=== PATIENT | female | born 1950 | race Caucasian/White ===

== ENCOUNTER 2018-04-16 16:18 | Inpatient (IN) ==
[2018-04-16] MEDS ORDERED: LOPERAMIDE 2 MG CAPSULE PO STA (16:34)
[2018-04-16] MEDS ORDERED: ONDANSETRON 4 MG/2 ML VIAL IV STA (16:34)
[2018-04-16] MEDS ORDERED: SODIUM CHLORIDE 0.9% 1,000 ML IV STA (16:34)
[2018-04-16] MEDS ORDERED: SODIUM CHLORIDE 0.9% 500 ML IV STA (16:40)
[2018-04-16 17:34] LABS: Basophils % 0.3 % (0.0-0.8); Eosinophils % 0.4 % (0.00-10.9); Hematocrit 34.8 VOL% (35.7-47.0); Hemoglobin 11.1 GM/DL (12.0-16.0); Immature Granulocytes % 2.1 %; Immature Granulocytes Absolute 0.16 #; Lymphocytes # 1.1 10*3/uL (1.4-4.0); Lymphocytes % 14.9 % (21.3-54.2); Mean Corpuscular HGB Conc 31.9 GM/DL (32-36); Mean Corpuscular Hemoglobin 35 PG (27-34); Mean Corpuscular Volume 109.1 FL (87-102); Mean Platelet Volume 11.5 FL (9.6-12.0); Monocytes # 0.6 10*3/uL (0.11-0.8); Monocytes % 7.7 % (1.7-12.7); NRBC # 0.07 10*3/uL; Neutrophils # 5.7 10*3/uL (1.4-7.4); Neutrophils % 74.6 % (38.7-73.9); Platelet Count 116 T/CUMM (130-400); Red Blood Count 3.19 MC/CUMM (3.8-5.5); Red Cell Distribution Width 15.4 % (9.3-17.3); White Blood Count 7.6 T/CUMM (4-12)
[2018-04-16 17:51] LABS: Albumin 3.4 G/DL (3.4-5.0); Bilirubin,Total 1.2 MG/DL (0.2-1.0); Calcium 8.6 MG/DL (8.5-10.1); Osmolality,Calculated 272.1 MOS/KG (273-304); Potassium 3.2 MMOL/L (3.5-5.1); Total Protein 8.5 G/DL (6.4-8.3)
[2018-04-16 17:51] LABS: Partial Thromboplastin Time 25.9 SECS (0-40)
[2018-04-16 19:28] LABS: Apearance,Urine CLEAR (Clear); Bacteria,Urine Occasional /HPF (Few); Bilirubin,Urine Negative (Negative); Blood, Urine Moderate mg/dL (Negative); Glucose,Urine (UA) Negative (Negative); Hyaline Casts,Urine 14 /LPF (0-3); Ketones,Urine Negative (Negative); Mucus,Urine Occasional /LPF (Occasional); Nitrite,Urine Positive (Negative); Protein,Urine Negative; RBC,Urine 17 /HPF (0-4); Squamous Epithelial Cell,Urine Occasional /HPF (0-10); Urine Color Yellow (Yellow); Urine Specific Gravity 1.008 (1.001-1.035); Urine Urobilinogen < 2.0 EU/DL (0.2-1.0); WBC,Urine 2 /HPF (0-6)
[2018-04-16] MEDS ORDERED: ONDANSETRON 4 MG/2 ML VIAL IV PRN (20:38)
[2018-04-16] MEDS ORDERED: traMADol 50 MG TABLET PO PRN (20:41)
[2018-04-16] MEDS ORDERED: MAGNESIUM SULFATE 2 GM/50 ML PREMIX IV SCH (21:00)
[2018-04-16] MEDS: cefTRIAXone 1,000 MG in SYRINGE 1 EACH IV SCH (21:01)
[2018-04-16 21:20] LABS: Risk Ratio 2.27; VLDL CHOLESTEROL 24.2 MG/DL
[2018-04-16] MEDS: SODIUM CHLORIDE 0.9% 1,000 ML IV SCH (22:55)
[2018-04-16] MEDS: CARVEDILOL 6.25 MG TABLET PO SCH (23:17)
[2018-04-16] MEDS: POTASSIUM CHLORIDE 20 MEQ TABLET PO SCH (23:17)
[2018-04-16] MEDS: PREGABALIN 50 MG CAPSULE PO SCH (23:18)
[2018-04-16] MEDS: APIXABAN 5 MG TABLET PO SCH (23:18)
[2018-04-17 00:54] LABS: Basophils % 0.2 % (0.0-0.8); Eosinophils % 0.5 % (0.00-10.9); Hematocrit 31.5 VOL% (35.7-47.0); Hemoglobin 10.1 GM/DL (12.0-16.0); Immature Granulocytes % 1.9 %; Immature Granulocytes Absolute 0.12 #; Lymphocytes # 1.3 10*3/uL (1.4-4.0); Lymphocytes % 19.9 % (21.3-54.2); Mean Corpuscular HGB Conc 32.1 GM/DL (32-36); Mean Corpuscular Hemoglobin 35 PG (27-34); Mean Corpuscular Volume 110.1 FL (87-102); Monocytes # 0.6 10*3/uL (0.11-0.8); Monocytes % 9.6 % (1.7-12.7); NRBC # 0.05 10*3/uL; Neutrophils # 4.3 10*3/uL (1.4-7.4); Neutrophils % 67.9 % (38.7-73.9); Platelet Count 105 T/CUMM (130-400); Red Blood Count 2.86 MC/CUMM (3.8-5.5); Red Cell Distribution Width 15.3 % (9.3-17.3); White Blood Count 6.3 T/CUMM (4-12)
[2018-04-17 00:58] LABS: Calcium 8.2 MG/DL (8.5-10.1); Osmolality,Calculated 277.7 MOS/KG (273-304); Potassium 3.4 MMOL/L (3.5-5.1)
[2018-04-17 01:16] LABS: Platelet Estimate Decreased; Polychromasia Few
[2018-04-17] MEDS: SODIUM CHLORIDE 0.9% 1,000 ML IV SCH ×3 (06:25→23:49)
[2018-04-17] MEDS: LEVOTHYROXINE 50 MCG TABLET PO SCH (06:25)
[2018-04-17] MEDS: APIXABAN 5 MG TABLET PO SCH ×2 (08:38→20:40)
[2018-04-17] MEDS: VENLAFAXINE XR 75 MG CAPSULE PO SCH (08:38)
[2018-04-17] MEDS: CARVEDILOL 6.25 MG TABLET PO SCH ×2 (08:38→20:39)
[2018-04-17] MEDS: DIGOXIN 0.125 MG TABLET PO SCH (08:39)
[2018-04-17] MEDS: POTASSIUM CHLORIDE 20 MEQ TABLET PO SCH ×2 (08:39→20:40)
[2018-04-17] MEDS: PREGABALIN 50 MG CAPSULE PO SCH ×2 (08:39→20:40)
[2018-04-17] MEDS: MEGESTROL 40 MG TABLET PO SCH (08:40)
[2018-04-17] MEDS: MAGNESIUM OXIDE 400 MG TABLET PO SCH (08:40)
[2018-04-17] MEDS: CHOLECALCIFEROL 5,000 UNIT TABLET PO SCH (08:40)
[2018-04-17] MEDS: PANTOPRAZOLE 40 MG TABLET PO SCH (08:40)
[2018-04-17] MEDS ORDERED: ALLOPURINOL 300 MG TABLET PO SCH (09:00)
[2018-04-17] MEDS ORDERED: PANTOPRAZOLE 40 MG TABLET PO SCH (09:00)
[2018-04-17] MEDS: MIDODRINE 5 MG TABLET PO SCH ×2 (17:20→20:40)
[2018-04-17] MEDS: cefTRIAXone 1,000 MG in SYRINGE 1 EACH IV SCH (20:40)
[2018-04-17] MEDS ORDERED: BORTEZOMIB SUBCUT SCH (20:41)
[2018-04-18 04:48] LABS: Basophils % 0.1 % (0.0-0.8); Eosinophils # 0.1 10*3/uL (0.0-0.87); Eosinophils % 0.8 % (0.00-10.9); Hematocrit 29.5 VOL% (35.7-47.0); Immature Granulocytes % 0.8 %; Immature Granulocytes Absolute 0.06 #; Lymphocytes # 1.3 10*3/uL (1.4-4.0); Lymphocytes % 18.3 % (21.3-54.2); Mean Corpuscular HGB Conc 30.5 GM/DL (32-36); Mean Corpuscular Hemoglobin 35 PG (27-34); Mean Corpuscular Volume 114.8 FL (87-102); Monocytes # 0.6 10*3/uL (0.11-0.8); Monocytes % 8.1 % (1.7-12.7); NRBC # 0.03 10*3/uL; Neutrophils # 5.2 10*3/uL (1.4-7.4); Neutrophils % 71.9 % (38.7-73.9); Platelet Count 101 T/CUMM (130-400); Red Blood Count 2.57 MC/CUMM (3.8-5.5); Red Cell Distribution Width 16.2 % (9.3-17.3); White Blood Count 7.3 T/CUMM (4-12)
[2018-04-18 05:08] LABS: Potassium 4.3 MMOL/L (3.5-5.1)
[2018-04-18 05:40] LABS: Hypochromasia 1+; Ovalocytes Slight; Platelet Estimate Decreased
[2018-04-18] MEDS: LEVOTHYROXINE 50 MCG TABLET PO SCH (06:10)
[2018-04-18] MEDS: CARVEDILOL 6.25 MG TABLET PO SCH ×2 (08:42→21:58)
[2018-04-18] MEDS: MIDODRINE 5 MG TABLET PO SCH ×4 (08:42→21:57)
[2018-04-18] MEDS: DIGOXIN 0.125 MG TABLET PO SCH (08:42)
[2018-04-18] MEDS: CHOLECALCIFEROL 5,000 UNIT TABLET PO SCH (08:42)
[2018-04-18] MEDS: VENLAFAXINE XR 75 MG CAPSULE PO SCH (08:42)
[2018-04-18] MEDS: APIXABAN 5 MG TABLET PO SCH ×2 (08:43→21:59)
[2018-04-18] MEDS: MAGNESIUM OXIDE 400 MG TABLET PO SCH (08:43)
[2018-04-18] MEDS: POTASSIUM CHLORIDE 20 MEQ TABLET PO SCH ×2 (08:43→21:58)
[2018-04-18] MEDS: PANTOPRAZOLE 40 MG TABLET PO SCH (08:43)
[2018-04-18] MEDS: PREGABALIN 50 MG CAPSULE PO SCH ×2 (08:44→21:57)
[2018-04-18] MEDS: MEGESTROL 40 MG TABLET PO SCH (08:45)
[2018-04-18] MEDS ORDERED: LOPERAMIDE 2 MG CAPSULE PO ONE (10:58)
[2018-04-18] MEDS ORDERED: MAGNESIUM SULF RIDER 2 GM in PREMIX 1 EACH IV ONE (11:36)
[2018-04-18] MEDS: LOPERAMIDE 2 MG CAPSULE PO PRN ×2 (14:40→21:58)
[2018-04-18] MEDS: cefTRIAXone 1,000 MG in SYRINGE 1 EACH IV SCH (21:55)
[2018-04-18] MEDS: SODIUM CHLORIDE 0.9% 1,000 ML IV SCH (21:59)
[2018-04-19] MEDS: LOPERAMIDE 2 MG CAPSULE PO PRN ×3 (04:05→22:01)
[2018-04-19 05:48] LABS: Basophils % 0.2 % (0.0-0.8); Eosinophils # 0.1 10*3/uL (0.0-0.87); Eosinophils % 1.4 % (0.00-10.9); Hematocrit 30.1 VOL% (35.7-47.0); Hemoglobin 9.1 GM/DL (12.0-16.0); Immature Granulocytes % 0.7 %; Immature Granulocytes Absolute 0.04 #; Lymphocytes # 1.1 10*3/uL (1.4-4.0); Lymphocytes % 18.8 % (21.3-54.2); Mean Corpuscular HGB Conc 30.2 GM/DL (32-36); Mean Corpuscular Hemoglobin 35 PG (27-34); Mean Corpuscular Volume 116.2 FL (87-102); Monocytes # 0.5 10*3/uL (0.11-0.8); Monocytes % 7.9 % (1.7-12.7); Platelet Count 113 T/CUMM (130-400); Red Blood Count 2.59 MC/CUMM (3.8-5.5); Red Cell Distribution Width 16.5 % (9.3-17.3); White Blood Count 5.7 T/CUMM (4-12)
[2018-04-19 06:07] LABS: Calcium 8.2 MG/DL (8.5-10.1); Osmolality,Calculated 275.5 MOS/KG (273-304); Potassium 3.7 MMOL/L (3.5-5.1)
[2018-04-19] MEDS: LEVOTHYROXINE 50 MCG TABLET PO SCH (06:20)
[2018-04-19] MEDS: DIGOXIN 0.125 MG TABLET PO SCH (08:58)
[2018-04-19] MEDS: MAGNESIUM OXIDE 400 MG TABLET PO SCH (08:58)
[2018-04-19] MEDS: CHOLECALCIFEROL 5,000 UNIT TABLET PO SCH (08:58)
[2018-04-19] MEDS: CARVEDILOL 6.25 MG TABLET PO SCH ×2 (08:58→22:02)
[2018-04-19] MEDS: MIDODRINE 5 MG TABLET PO SCH ×4 (08:58→22:01)
[2018-04-19] MEDS: MEGESTROL 40 MG TABLET PO SCH (08:58)
[2018-04-19] MEDS: POTASSIUM CHLORIDE 20 MEQ TABLET PO SCH ×2 (08:58→22:01)
[2018-04-19] MEDS: VENLAFAXINE XR 75 MG CAPSULE PO SCH (08:58)
[2018-04-19] MEDS: PREGABALIN 50 MG CAPSULE PO SCH ×2 (08:59→22:01)
[2018-04-19] MEDS: PANTOPRAZOLE 40 MG TABLET PO SCH (08:59)
[2018-04-19] MEDS: APIXABAN 5 MG TABLET PO SCH ×2 (08:59→22:01)
[2018-04-19] MEDS: cefTRIAXone 1,000 MG in SYRINGE 1 EACH IV SCH (22:02)
[2018-04-20] MEDS: SODIUM CHLORIDE 0.9% 1,000 ML IV SCH ×2 (00:11→00:46)
[2018-04-20] MEDS: LEVOTHYROXINE 50 MCG TABLET PO SCH (05:42)
[2018-04-20] MEDS ORDERED: TUBERCULIN SKIN TEST 0.1 ML SYRINGE INTRADERM ONE (07:44)
[2018-04-20] MEDS: MAGNESIUM OXIDE 400 MG TABLET PO SCH (09:27)
[2018-04-20] MEDS: VENLAFAXINE XR 75 MG CAPSULE PO SCH (09:27)
[2018-04-20] MEDS: MIDODRINE 5 MG TABLET PO SCH ×3 (09:27→21:03)
[2018-04-20] MEDS: DIGOXIN 0.125 MG TABLET PO SCH (09:28)
[2018-04-20] MEDS: LOPERAMIDE 2 MG CAPSULE PO PRN (09:29)
[2018-04-20] MEDS: APIXABAN 5 MG TABLET PO SCH ×2 (09:29→21:03)
[2018-04-20] MEDS: CHOLECALCIFEROL 5,000 UNIT TABLET PO SCH (09:29)
[2018-04-20] MEDS: MEGESTROL 40 MG TABLET PO SCH (09:29)
[2018-04-20] MEDS: PANTOPRAZOLE 40 MG TABLET PO SCH (09:29)
[2018-04-20] MEDS: CARVEDILOL 6.25 MG TABLET PO SCH ×2 (09:29→21:04)
[2018-04-20] MEDS: POTASSIUM CHLORIDE 20 MEQ TABLET PO SCH ×2 (09:32→21:03)
[2018-04-20] MEDS: PREGABALIN 50 MG CAPSULE PO SCH ×2 (14:05→21:04)
[2018-04-20] MEDS: cefTRIAXone 1,000 MG in SYRINGE 1 EACH IV SCH (21:04)
[2018-04-21] MEDS: MIDODRINE 5 MG TABLET PO SCH ×5 (06:03→21:28)
[2018-04-21] MEDS: LEVOTHYROXINE 50 MCG TABLET PO SCH (06:04)
[2018-04-21] MEDS: SODIUM CHLORIDE 0.9% 1,000 ML IV SCH ×2 (06:04→09:13)
[2018-04-21] MEDS: MEGESTROL 40 MG TABLET PO SCH (09:15)
[2018-04-21] MEDS: CHOLECALCIFEROL 5,000 UNIT TABLET PO SCH (09:15)
[2018-04-21] MEDS: PREGABALIN 50 MG CAPSULE PO SCH ×2 (09:15→21:28)
[2018-04-21] MEDS: APIXABAN 5 MG TABLET PO SCH ×2 (09:15→21:27)
[2018-04-21] MEDS: VENLAFAXINE XR 75 MG CAPSULE PO SCH (09:15)
[2018-04-21] MEDS: CARVEDILOL 6.25 MG TABLET PO SCH ×2 (09:16→21:30)
[2018-04-21] MEDS: POTASSIUM CHLORIDE 20 MEQ TABLET PO SCH ×2 (09:16→21:28)
[2018-04-21] MEDS: PANTOPRAZOLE 40 MG TABLET PO SCH (09:16)
[2018-04-21] MEDS: DIGOXIN 0.125 MG TABLET PO SCH (09:17)
[2018-04-21] MEDS: MAGNESIUM OXIDE 400 MG TABLET PO SCH (09:22)
[2018-04-21] MEDS: cefTRIAXone 1,000 MG in SYRINGE 1 EACH IV SCH (21:32)
[2018-04-22 05:03] LABS: Basophils % 0.2 % (0.0-0.8); Eosinophils # 0.1 10*3/uL (0.0-0.87); Eosinophils % 1.1 % (0.00-10.9); Hemoglobin 8.1 GM/DL (12.0-16.0); Immature Granulocytes % 0.5 %; Immature Granulocytes Absolute 0.03 #; Lymphocytes % 18.1 % (21.3-54.2); Mean Corpuscular HGB Conc 31.2 GM/DL (32-36); Mean Corpuscular Hemoglobin 35 PG (27-34); Mean Corpuscular Volume 112.6 FL (87-102); Mean Platelet Volume 11.7 FL (9.6-12.0); Monocytes # 0.4 10*3/uL (0.11-0.8); Monocytes % 7.7 % (1.7-12.7); Neutrophils # 4.1 10*3/uL (1.4-7.4); Neutrophils % 72.4 % (38.7-73.9); Platelet Count 116 T/CUMM (130-400); Red Blood Count 2.31 MC/CUMM (3.8-5.5); Red Cell Distribution Width 15.9 % (9.3-17.3); White Blood Count 5.7 T/CUMM (4-12)
[2018-04-22 05:20] LABS: Calcium 8.2 MG/DL (8.5-10.1); Osmolality,Calculated 277.4 MOS/KG (273-304); Potassium 4.5 MMOL/L (3.5-5.1)
[2018-04-22] MEDS: LEVOTHYROXINE 50 MCG TABLET PO SCH (05:51)
[2018-04-22] MEDS: CARVEDILOL 6.25 MG TABLET PO SCH ×2 (08:07→21:00)
[2018-04-22] MEDS: MEGESTROL 40 MG TABLET PO SCH (08:07)
[2018-04-22] MEDS: APIXABAN 5 MG TABLET PO SCH ×2 (08:08→21:00)
[2018-04-22] MEDS: MAGNESIUM OXIDE 400 MG TABLET PO SCH (08:09)
[2018-04-22] MEDS: MIDODRINE 5 MG TABLET PO SCH ×4 (08:09→21:00)
[2018-04-22] MEDS: VENLAFAXINE XR 75 MG CAPSULE PO SCH (08:10)
[2018-04-22] MEDS: POTASSIUM CHLORIDE 20 MEQ TABLET PO SCH ×2 (08:10→21:00)
[2018-04-22] MEDS: DIGOXIN 0.125 MG TABLET PO SCH (08:11)
[2018-04-22] MEDS: CHOLECALCIFEROL 5,000 UNIT TABLET PO SCH (08:11)
[2018-04-22] MEDS: PANTOPRAZOLE 40 MG TABLET PO SCH (08:11)
[2018-04-22] MEDS: PREGABALIN 50 MG CAPSULE PO SCH ×2 (08:12→21:00)
[2018-04-22] MEDS ORDERED: SODIUM CHLORIDE 0.9% 1,000 ML IV PRN ×2 (09:23→14:04)
[2018-04-22] MEDS: cefTRIAXone 1,000 MG in SYRINGE 1 EACH IV SCH (21:01)
[2018-04-23 04:44] LABS: Basophils % 0.2 % (0.0-0.8); Eosinophils # 0.1 10*3/uL (0.0-0.87); Eosinophils % 1.4 % (0.00-10.9); Hematocrit 28.8 VOL% (35.7-47.0); Hemoglobin 9.1 GM/DL (12.0-16.0); Immature Granulocytes % 0.2 %; Immature Granulocytes Absolute 0.01 #; Lymphocytes % 19.6 % (21.3-54.2); Mean Corpuscular HGB Conc 31.6 GM/DL (32-36); Mean Corpuscular Hemoglobin 34 PG (27-34); Mean Corpuscular Volume 107.9 FL (87-102); Monocytes # 0.4 10*3/uL (0.11-0.8); Monocytes % 7.2 % (1.7-12.7); Neutrophils # 3.6 10*3/uL (1.4-7.4); Neutrophils % 71.4 % (38.7-73.9); Platelet Count 130 T/CUMM (130-400); Red Blood Count 2.67 MC/CUMM (3.8-5.5); Red Cell Distribution Width 17.9 % (9.3-17.3)
[2018-04-23 05:03] LABS: Calcium 8.2 MG/DL (8.5-10.1); Osmolality,Calculated 279.4 MOS/KG (273-304); Potassium 4.1 MMOL/L (3.5-5.1)
[2018-04-23] MEDS: NYSTATIN POWDER 15 GM BOTTLE TOP SCH ×2 (05:40→08:42)
[2018-04-23] MEDS: LEVOTHYROXINE 50 MCG TABLET PO SCH (05:40)
[2018-04-23] MEDS: DIGOXIN 0.125 MG TABLET PO SCH (08:42)
[2018-04-23] MEDS: PANTOPRAZOLE 40 MG TABLET PO SCH (08:43)
[2018-04-23] MEDS: MEGESTROL 40 MG TABLET PO SCH (08:43)
[2018-04-23] MEDS: CHOLECALCIFEROL 5,000 UNIT TABLET PO SCH (08:43)
[2018-04-23] MEDS: POTASSIUM CHLORIDE 20 MEQ TABLET PO SCH (08:43)
[2018-04-23] MEDS: MAGNESIUM OXIDE 400 MG TABLET PO SCH (08:43)
[2018-04-23] MEDS: APIXABAN 5 MG TABLET PO SCH (08:43)
[2018-04-23] MEDS: VENLAFAXINE XR 75 MG CAPSULE PO SCH (08:43)
[2018-04-23] MEDS: CARVEDILOL 6.25 MG TABLET PO SCH (08:43)
[2018-04-23] MEDS: PREGABALIN 50 MG CAPSULE PO SCH (08:43)
[2018-04-23] MEDS: MIDODRINE 5 MG TABLET PO SCH (08:43)
[2018-04-23] MEDS: LOPERAMIDE 2 MG CAPSULE PO PRN (09:04)
[2018-04-23 12:49] VITALS: BP 129/64
== END 2018-04-23 13:30 | disposition swing bed (61) | DRG 690 ==
LOC: EDBD → EDUNIT# → N.EDINP 16:18 → N.ED 16:18 → SUATTDRO 20:38 → N.4E 21:00
PROVIDERS: ADMIT Internal Medicine Geriatric Medicine; ATTEND Internal Medicine